=== PATIENT | male | born 1945 | race Caucasian/White ===

== ENCOUNTER 2021-02-25 13:24 | Observation (INO) | payer MEDICARE ==
[2021-02-25] VITALS (23 sets, daily range): BP systolic 117–169; BP diastolic 61–95
[~2021-02-25] VITALS: Ht 180.3 cm; Wt 90.7 kg
[2021-02-25] MEDS ORDERED: ZOSYN 3.375GM+NS 50ML 50 ML IV ONE ×2 (16:13→19:41)
[2021-02-25] MEDS ORDERED: ONDANSETRON 4MG INJ IVP PRN (16:15)
[2021-02-25] MEDS: LACTATED RINGERS 1000ML 1,000 ML IV SCH ×3 (16:15→19:44)
[2021-02-25] MEDS ORDERED: HYDROCODONE/ACETAMINOPHEN 5/325 MG TAB PO PRN (16:15)
[2021-02-25] MEDS ORDERED: ACETAMINOPHEN 325 MG TAB PO PRN ×3 (16:15→22:30)
[2021-02-25] MEDS ORDERED: BUPIVACAINE/PF 0.5% 30ML VIAL ONE (16:17)
[2021-02-25] MEDS ORDERED: GLYCOPYRROLATE 1 MG/5 ML SYRINGE ONE (16:20)
[2021-02-25] MEDS ORDERED: ONDANSETRON 4MG INJ ONE (16:20)
[2021-02-25] MEDS ORDERED: LIDOCAINE PF 100MG/5ML (2%) SYRINGE 5ML ONE (16:20)
[2021-02-25] MEDS ORDERED: ROCURONIUM 10MG/1ML SYR 10 MG/ML ML ONE (16:20)
[2021-02-25] MEDS ORDERED: MIDAZOLAM HCL 1 MG/ML 2ML VIAL ONE (16:20)
[2021-02-25] MEDS ORDERED: NEOSTIGMINE 5MG/5ML SYR IV ONE (16:20)
[2021-02-25] MEDS ORDERED: SUCCINYLCHOLINE CHLORIDE 20 MG/ML 10 ML VIAL ONE (16:20)
[2021-02-25] MEDS ORDERED: DEXAMETHASONE SOD PHOSPHATE 10MG/ML 1ML VIAL ONE (16:20)
[2021-02-25] MEDS ORDERED: PROPOFOL 10 MG/ML 20ML VIAL IV ONE (16:20)
[2021-02-25] MEDS ORDERED: FENTANYL CITRATE PF 50 MCG/1 ML 2ML VIAL ONE (16:21)
[2021-02-25] MEDS ORDERED: ACET1TAB25 PO (16:22)
[2021-02-25] MEDS ORDERED: MEPERIDINE-PF 25 MG/ML SYG ONE (17:18)
[2021-02-25] MEDS: MORPHINE 4 MG SYG IV PRN ×2 (19:08→22:36)
[2021-02-25] MEDS: ZOSYN 3.375GM+NS 50ML 50 ML IV SCH (19:44)
[2021-02-25] MEDS ORDERED: FAMOTIDINE 20MG VIAL IV SCH (21:00)
[2021-02-25] MEDS ORDERED: ONDANSETRON 4MG INJ IV PRN (22:30)
[2021-02-25] MEDS ORDERED: ACETAMINOPHEN WITH CODEINE 1 TAB TAB PO PRN ×2 (22:30)
[2021-02-26 04:00] VITALS: BP 121/61
[2021-02-26] MEDS: ZOSYN 3.375GM+NS 50ML 50 ML IV SCH ×3 (04:25→21:20)
[2021-02-26 05:09] LABS: MEAN CORPUSCULAR HEMOGLOBIN 30.1 pg (27.0-33.0); MEAN CORPUSCULAR HGB CONC 33.8 g/dL (32.0-36.0); MEAN CORPUSCULAR VOLUME 89.2 fL (79-99); RED BLOOD CELL COUNT(AUTO) 4.15 MIL/uL (4.50-6.20); RED CELL DISTRIBUTION WIDTH 12.1 % (11.0-15.5); WHITE BLOOD COUNT (AUTO) 11.5 K/uL (4.8-10.8)
[2021-02-26 05:21] LABS: ALBUMIN 3.1 g/dL (3.5-5.0); BILIRUBIN,TOTAL 0.5 mg/dL (0.2-1.0); CREATININE 1.2 mg/dL (0.5-1.5); MAGNESIUM 1.8 mg/dL (1.80-2.40); PHOSPHORUS 4.7 mg/dL (2.5-4.9); POTASSIUM 4.2 mmol/L (3.5-5.1); TOTAL PROTEIN, SERUM 7.4 g/dL (6.0-8.3)
[2021-02-26] MEDS ORDERED: MAGNESIUM 2GM PREMIX 50ML 50 ML IV ONE (05:27)
[2021-02-26] MEDS: LACTATED RINGERS 1000ML 1,000 ML IV SCH (05:29)
[2021-02-26] MEDS ORDERED: MAGNESIUM 2GM PREMIX 50ML 50 ML IV PRN (05:30)
[2021-02-26 07:49] VITALS: BP 151/78
[2021-02-26] MEDS: FAMOTIDINE 20MG VIAL IV SCH ×2 (08:51→21:20)
[2021-02-26] MEDS: METOPROLOL TARTRATE 25 MG TAB PO SCH ×2 (08:55→21:20)
[2021-02-26 10:49] VITALS: BP 134/77
[2021-02-26] MEDS: MORPHINE 4 MG SYG IV PRN ×2 (14:09→22:14)
[2021-02-26 15:29] VITALS: BP 148/78
[2021-02-26 20:00] VITALS: BP 135/77
[2021-02-27] VITALS: BP 125/69
[2021-02-27] MEDS: LACTATED RINGERS 1000ML 1,000 ML IV SCH (03:00)
[2021-02-27 04:07] VITALS: BP 123/66
[2021-02-27] MEDS: ZOSYN 3.375GM+NS 50ML 50 ML IV SCH ×2 (05:24→12:19)
[2021-02-27 08:50] VITALS: BP 143/70
[2021-02-27] MEDS: METOPROLOL TARTRATE 25 MG TAB PO SCH (09:14)
[2021-02-27] MEDS: FAMOTIDINE 20MG VIAL IV SCH (09:14)
[2021-02-27 12:00] VITALS: BP 135/67
[2021-02-27 16:00] VITALS: BP 139/71
== END 2021-02-27 18:00 | disposition home or self-care (01) ==
LOC: 3DH 15:20
PROVIDERS: ADMIT Internal Medicine; ATTEND Internal Medicine
DX: K35.80 Unspecified acute appendicitis (principal); R63.0 Anorexia; Z79.82 Long term (current) use of aspirin; Z98.890 Other specified postprocedural states; Z79.899 Other long term (current) drug therapy
CPT/HCPCS: 36415; 44970; 80053; 83735; 84100; 85027; 88304; 96361; 96365; 96366 ×2; 96368; 96375; 96376 ×3; A4215; A4600; A4649 ×5; A6206; C1769 ×4; G0378 ×47; G0379; J0330; J1100; J2001; J2175; J2250; J2270 ×4; J2405; J2543 ×7; J2704; J2710; J3010; J3475; J3490 ×6; J7030; J7120 ×4

== ENCOUNTER → 2023-11-29 | Outpatient (CLI) | payer OTHER ==
[~2023-11-29] MED LIST: ACET-2079 PO
== END | disposition home or self-care (01) ==
LOC: OIH 13:21
PROVIDERS: ATTEND Internal Medicine Cardiovascular Disease
DX: Z13.6 Encounter for screening for cardiovascular disorders (principal); R93.1 Abnormal findings on diagnostic imaging of heart and coronary circulation
CPT/HCPCS: 75571